=== PATIENT | female | born 1950 | race African-American/Black ===

== ENCOUNTER 2024-09-16 09:11 | Emergency (ER) | payer MEDICAID, MEDICARE ==
[~2024-09-16] VITALS: Ht 162.6 cm; Wt 77.1 kg
[2024-09-16 09:32] VITALS: RESP 17; TEMP 97.6
[2024-09-16] MEDS: ONDANSETRON HCL 4 MG ORAL DISINTEGRATING TAB PO ONE (10:49)
[2024-09-16 10:58] VITALS: PULSE 85; O2SAT 100
[2024-09-16] MEDS ORDERED: KETOROLAC TROMETHAMINE 30 MG/ML VIAL IV STA (11:16)
[2024-09-16] MEDS ORDERED: METOCLOPRAMIDE HCL 10 MG/2ML VIAL IV ONE (11:30)
[2024-09-16] MEDS ORDERED: CEPHALEXIN500 MG PO (12:27)
== END 2024-09-16 13:40 ==
LOC: ER 09:15
DX: M25.511 Pain in right shoulder (principal); M25.571 Pain in right ankle and joints of right foot; S09.90XA Unspecified injury of head, initial encounter; M25.552 Pain in left hip; M25.551 Pain in right hip; M25.561 Pain in right knee; W05.0XXA Fall from non-moving wheelchair, initial encounter; Y92.89 Other specified places as the place of occurrence of the external cause; F03.90 Unspecified dementia, unspecified severity, without behavioral disturbance, psychotic disturbance, mood disturbance, and anxiety
CPT/HCPCS: 70450; 73060; 73521; 73562; 73610; 99283; Q0162; J1885; J2765